=== PATIENT | female | born 1965 | race Caucasian/White ===

== ENCOUNTER 2017-12-04 19:15 | Emergency (ER) | payer OTHER ==
[~2017-12-04] VITALS: Ht 154.9 cm; Wt 71.2 kg
[2017-12-04 19:29] VITALS: BP 162/88
[2017-12-04] MEDS ORDERED: AUGMENTIN 875-1 EACH PO (20:59)
[2017-12-04] MEDS ORDERED: PERCOCET 5-3251 EACH PO (20:59)
[2017-12-04] MEDS ORDERED: IBUPROFEN800 M1 PO (20:59)
--- NOTE | 2017-12-04 21:00 | ED GENERAL ADULT ---
History of Present Illness General Chief Complaint: Sore Throat, Dental Pain Stated Complaint: MOUTH PAIN Source: patient Exam Limitations: no limitations Vital Signs & Intake/Output Vital Signs & Intake/Output Vital Signs Date Time Temp Pulse Resp B/P B/P Pulse O2 O2 Flow FiO2 Mean Ox Delivery Rate 12/04 1928 98.9 74 18 162/88 99 Room Air Allergies Coded Allergies: No Known Allergies (12/04/17) Reconcile Medications Amoxicillin/Potassium Clav (Augmentin 875-125 Tablet) 875 MG-125 MG TABLET 1 TAB PO BID dental infection Ibuprofen 800 MG TABLET 1 TAB PO TID PRN pain Oxycodone HCl/Acetaminophen (Percocet 5-325 MG Tablet) 5 MG-325 MG TABLET 1 TAB PO Q4 HRS NEEDED PRN pain Triage Note: PT STATES THAT SHE HAD ORAL SURGERY 11/16 AND THAT SHE HAS BEEN HAVIGN PROBLEMS, STATES THAT SHE THINKS ITS INFECTED AND THAT SHE HAS A LOT OF PAIN Triage Nurses Notes Reviewed? yes Onset: Gradual Duration: week(s): Timing: constant HPI: 52-year-old female with no known past medical history presenting with dental pain 2 weeks. Patient reports that she lives in [place] and is currently visiting her daughter in the area. She had extractions of all of her lower teeth on November 16 while in [place]. Her dentist applied temporary dentures to the lower teeth over her surgical site. She is scheduled to get her permanent dentures when she returns to [place]. States that she has had persistently worsening pain of the extraction sites, and intermittent purulent drainage. States that she has gone through bottles of ibuprofen and Tylenol without relief. Denies fevers. (Brie Mccullough) Past History Travel History Traveled to [place] past 21 day No Medical History Any Pertinent Medical History? none Neurological: NONE EENT: NONE Cardiovascular: NONE Respiratory: NONE Gastrointestinal: NONE Hepatic: NONE Renal: NONE Musculoskeletal: NONE Psychiatric: NONE Endocrine: NONE Cancer(s): breast cancer, cervical cancer, KIDNEY CANCER Surgical History Surgical History: non-contributory Psychosocial History What is your primary language Luxembourgish Tobacco Use: Never used ETOH Use: denies use Illicit Drug Use: denies illicit drug use Family History Hx Contributory? No (Brie Mccullough) Review of Systems Review of Systems Constitutional: Reports: no symptoms. EENTM: Reports: see HPI. Respiratory: Reports: no symptoms. Cardiovascular: Reports: no symptoms. GI: Reports: no symptoms. Genitourinary: Reports: no symptoms. Musculoskeletal: Reports: no symptoms. Skin: Reports: no symptoms. Neurological/Psychological: Reports: no symptoms. Hematologic/Endocrine: Reports: no symptoms. Immunologic/Allergic: Reports: no symptoms. All Other Systems: Reviewed and Negative (Brie Mccullough) Physical Exam Physical Exam General Appearance: well developed/nourished, no apparent distress, alert, awake , comfortable Comments: Gen.: Well-nourished, well-developed, no acute distress. Head: Normocephalic, atraumatic. Eyes: Normal inspection bilaterally Ears: Normal inspection bilaterally Nose: Normal inspection Oral cavity: Patient states that she cannot remove her temporary lower dentures as they are snapped in place, therefore exam is limited. There is diffuse tenderness to palpation with tooth rest over the entire lower mouth. No visualized gingival abscess or purulent drainage. Neck: Normal inspection Lungs: clear to auscultation bilaterally, normnal breath sounds Heart: regular rate and rhythm Abdomen: soft and non-tender Extremities: Normal inspection Neurologic: alert and oriented x3, steady gait Skin: warm and dry Psychiatric: Normal mood and affect, no apparent delusions or hallucinations, behavior appropriate Core Measures ACS in differential dx? No CVA/TIA Diagnosis: No Sepsis Present: No Sepsis Focused Exam Completed? No (Brie Mccullough) Progress Differential Diagnoses I considered the following diagnoses in my evaluation of the patient: [Postop infection versus postop pain, no evidence of Wilbert's angina] Plan of Care: Current Medications Sig/Dago Start time Last Medication Dose Stop Time Status Admin Amoxicillin/ 875 MG ONCE ONE 12/04 2099 CAN Clavulanate Potassium 12/04 2100 (Augmentin) Given Rx Augmentin, ibuprofen, and Percocet. She will follow-up with her dentist when she returns to [place]. Counseled on supportive care and strict return precautions. Initial ED EKG: none (Brie Mccullough) Departure Departure Disposition: HOME OR SELF CARE Condition: Stable Clinical Impression Primary Impression: Pain, dental Referrals: Unknown (PCP/Family) Additional Instructions: Take Augmentin as prescribed. Use ibuprofen and Percocet as needed for pain. Follow-up with your dentist once he returned home. Return to the emergency department for any new or worsening symptoms. Departure Forms: Customer Survey General Discharge Information Prescriptions: Current Visit Scripts Oxycodone HCl/Acetaminophen (Percocet 5-325 MG Tablet) 1 TAB PO Q4 HRS NEEDED PRN pain #12 TAB Ibuprofen 1 TAB PO TID PRN pain #90 TAB Amoxicillin/Potassium Clav (Augmentin 875-125 Tablet) 1 TAB PO BID #20 TAB (Brie Mccullough) PA/CHIPPER OPERATOR Co-Sign Statement Statement: ED Attending supervision documentation- [] I saw and evaluated the patient. I have also reviewed all the pertinent lab results and diagnostic results. I agree with the findings and the plan of care as documented in the PA's/CHIPPER OPERATOR's documentation. [X] I have reviewed the ED Record and agree with the PA's/CHIPPER OPERATOR's documentation. [] Additions or exceptions (if any) to the PAs/CHIPPER OPERATOR's note and plan are summarized below: [] (Felice Licea DO) Critical Care Note Critical Care Note Critical Care Time: non-applicable (Brie Mccullough)
== END 2017-12-04 21:19 ==
LOC: ERH 19:15
DX: K08.89 Other specified disorders of teeth and supporting structures (principal)
CPT/HCPCS: J3490